=== PATIENT | female | born 1945 | race Caucasian/White ===

== ENCOUNTER 2017-08-10 09:57 | Emergency (ER) | payer MEDICARE ==
[~2017-08-10] VITALS: Ht 163.8 cm; Wt 70.0 kg
[~2017-08-10 09:57] MED LIST: ACIDOPHILUS PEARLS PO; ALENDRONATE70 MG PO; ALL DAY10 MG PO; ASPIRIN 8181 MG PO; ATIVAN0.5 MG PO; ATIVAN1 MG PO; BACTRIM DS1 TAB PO; C 250 PO; CALCIUM500 MG/D PO; CENTRUM SILVER ULTRA PO; CLOBETASOL0.051 EX; CRANBERRY PO; DIPHEN/ATROP2.5 M1 PO; DIPHEN/ATROP2.5 MG PO; FISH OIL1200 M1 PO; GLUCOSAMINE1000 M1 PO; HYDROCHLOROT25 MG PO; LISINOPRIL5 MG PO; MEDDOSEPAK PO; NAPROSYN500 MG PO; PAXIL40 MG PO; PRILOSEC20 MG/CAP PO; SIMVASTATIN40 MG PO; TESSALON PER100 MG PO; ZOFRAN ODT4 MG PO; ZYRTEC10 M5 PO
[2017-08-10] MEDS ORDERED: AMLODIPINE BESYL5 MG PO (10:38)
[2017-08-10] MEDS ORDERED: HYDROCHLOROT25 MG PO (10:38)
[2017-08-10] MEDS ORDERED: ALENDRONATE SOD70 MG PO (10:39)
[2017-08-10] MEDS ORDERED: SIMVASTATIN40 MG PO (10:39)
[2017-08-10] MEDS ORDERED: FUROSEMIDE20 MG PO (10:39)
[2017-08-10] MEDS ORDERED: DULOXETINE HCL60 MG PO (10:40)
[2017-08-10] MEDS ORDERED: MICRO-K10 MEQ PO (10:40)
[2017-08-10 12:00] VITALS: BP 121/69
[2017-08-10] MEDS ORDERED: TORADOL PO (12:00)
[2017-08-10] MEDS ORDERED: FLEXERIL PO (12:00)
[2017-08-11] MEDS ORDERED: LORTAB 1010 MG PO (06:29)
[2017-08-11] MEDS ORDERED: MEDDOSEPAK PO (06:29)
== END 2017-08-10 12:00 | disposition home or self-care (01) ==
LOC: ED 09:57
DX: S16.1XXA Strain of muscle, fascia and tendon at neck level, initial encounter (principal); I10 Essential (primary) hypertension; X58.XXXA Exposure to other specified factors, initial encounter

== ENCOUNTER 2017-08-11 05:16 | Emergency (ER) | payer MEDICARE ==
[~2017-08-11] VITALS: Ht 163.8 cm; Wt 50.0 kg
[~2017-08-11 05:16] MED LIST changes: +ALENDRONATE SOD70 MG PO; +AMLODIPINE BESYL5 MG PO; +DULOXETINE HCL60 MG PO; +FLEXERIL PO; +FUROSEMIDE20 MG PO; +MICRO-K10 MEQ PO; +TORADOL PO
[2017-08-11] MEDS ORDERED: MEDDOSEPAK PO (06:29)
[2017-08-11] MEDS ORDERED: LORTAB 1010 MG PO (06:29)
[2017-08-11 06:30] VITALS: BP 131/67
== END 2017-08-11 06:40 | disposition home or self-care (01) ==
LOC: ED 05:16
DX: S16.1XXA Strain of muscle, fascia and tendon at neck level, initial encounter (principal); M54.2 Cervicalgia

== ENCOUNTER 2020-06-10 14:54 | Emergency (ER) | payer MEDICARE ==
[~2020-06-10] VITALS: Ht 165.1 cm; Wt 72.7 kg
[~2020-06-10 14:54] MED LIST changes: +LORTAB 1010 MG PO
[2020-06-10] MEDS ORDERED: ATENOLOL25 MG PO (15:24)
[2020-06-10] MEDS ORDERED: SIMVASTATIN40 MG PO (15:25)
[2020-06-10] MEDS ORDERED: CYMBALTA60 MG PO (15:25)
[2020-06-10] MEDS ORDERED: TRAMADOL HYDROC50 MG PO (17:44)
[2020-06-10 17:51] VITALS: BP 137/84
== END 2020-06-10 17:51 | disposition home or self-care (01) ==
LOC: ED 14:54
DX: S80.01XA Contusion of right knee, initial encounter (principal); S00.83XA Contusion of other part of head, initial encounter; W01.198A Fall on same level from slipping, tripping and stumbling with subsequent striking against other object, initial encounter; I10 Essential (primary) hypertension; Y92.009 Unspecified place in unspecified non-institutional (private) residence as the place of occurrence of the external cause
CPT/HCPCS: L1830

== ENCOUNTER 2023-01-15 09:41 | Inpatient (IN) | payer MEDICARE ==
[2023-01-15] VITALS (24 sets, daily range): BP systolic 81–147; BP diastolic 46–76
[~2023-01-15] VITALS: Ht 165.1 cm; Wt 79.4 kg
[~2023-01-15 09:41] MED LIST changes: +ATENOLOL25 MG PO; +CYMBALTA60 MG PO; +TRAMADOL HYDROC50 MG PO
--- NOTE | 2023-01-15 09:50 | NUR ---
PATIENT TO ROOM 1
[2023-01-15 10:21] LABS: BASO% 0.9 % (0-3); HEMATOCRIT 36.5 % (37.0-47.0); HEMOGLOBIN 12.4 g/dl (12.0-16.0); IMMATURE GRANULOCYTES 0.3 % (0.0-5.0); LYMPH% 14.6 % (15-41); MEAN CELL VOLUME 86.9 fL CALC (80.0-100.0); MEAN CORPUSCULAR HGB 29.5 pG CALC (26.0-32.0); MONO% 7.2 % (2-13); NEUT# 4.89 thou/uL (2.00-7.15); RED BLOOD COUNT 4.2 mill/uL (4.20-5.60); RED CELL DISTRI WIDTH 12.3 % (11.5-15.5)
--- NOTE | 2023-01-15 12:04 | NUR ---
Reassessment of patient completed. No distress noted.
--- NOTE | 2023-01-15 12:40 | NUR ---
REPORT TO Jessica SMALL RN
--- NOTE | 2023-01-15 13:00 | NUR ---
female pt received to ICU bed 4 from ER via stretcher accompanied by ELAN Irvin in stable condition; ambulatory to the bed; admission assessment completed at this time; pt a&o X3; admits to left sided headache rating 4/10; pt denies nausea, vomiting, dizziness or blurred vision at present; pt does admit to vision changes and freq falling within the last week; resp even and unlabored; lungs clear; skin color wnl; ra; hr reg; strong pulses; no edema noted; sr on monitor; abd soft with bs present; no bm noted; no urine to inspect at this time; #24 patent to lfa with ivf/solumedrol infusing without complication; no redness or edema noted at site; plan of care explained; call light within reach; will continue to monitor
--- NOTE | 2023-01-15 14:00 | NUR ---
pt awake in bed; spouse at bedside; no apparent distress noted; iv intact; sr on monitor; call light within reach; will continue to monitor
--- NOTE | 2023-01-15 16:16 | NUR ---
pt resting in bed with eyes closed; no apparent distress noted; iv intact; sr on monitor; call light within reach; will continue to monitor
--- NOTE | 2023-01-15 17:45 | NUR ---
home meds reviewed with pt; pt denies remembering the last time home meds were taken; states "I can't remember"; list placed on chart
[2023-01-15] MEDS ORDERED: ASPIRIN 81 LOW81 MG PO (17:59)
[2023-01-15] MEDS ORDERED: CETIRIZINE10 MG PO (18:00)
[2023-01-15] MEDS ORDERED: KLOR-CON M1010 MEQ PO (18:02)
[2023-01-15] MEDS ORDERED: GABAPENTIN100 MG PO (18:03)
[2023-01-15] MEDS ORDERED: COZAAR50 MG PO (18:04)
[2023-01-15] MEDS ORDERED: TOPAMAX100 MG PO (18:04)
--- NOTE | 2023-01-15 18:19 | NUR ---
awake in bed eating dinner; sr on monitor; call light within reach
--- NOTE | 2023-01-15 19:00 | NUR ---
REPORT RECIEVED FROM OFF GOING NURSE.
--- NOTE | 2023-01-15 20:00 | NUR ---
PATIENT NOTED SITTING UP IN BED WITH NO ACUTE DISTRESS NOTED. VSS. SHE DENIES ANY PAIN OR DISCOMFORT AT THIS TIME. ASSESMENT COPLETED (SEE INTERVENTIONS). MD NOTIFIED REGARDING THE PATIENT HAVING NO ORDERS. WILL CONTINUE TO MONITOR.
--- NOTE | 2023-01-15 23:15 | NUR ---
MS NURSE RECIEVED REPORT. PATIENT TRANSFERRED TO MED SURGE UNIT.
--- NOTE | 2023-01-15 23:15 | NUR ---
PATIENT TRANSFERRED TO [facility] ROOM. ALERT AND ORIENTED. ABLE TO MAKE NEEDS KNOWN. ASSESSMENT COMPLETE. NO DISTRESS. NO COMPLAINTS OF PAIN. BED IN LOW POSITION. CALL MESSER IN REACH.
--- NOTE | 2023-01-16 03:26 | NUR ---
PATIENT VOIDED 300CC CLEAR YELLOW URINE ON BSC. COLLECTED SPECIMEN PER ORDERS.
[2023-01-16 03:28] VITALS: BP 122/41
[2023-01-16 04:44] VITALS: BP 122/41
[2023-01-16 05:00] LABS: BASO% 0.2 % (0-3); HEMATOCRIT 33.5 % (37.0-47.0); HEMOGLOBIN 11.6 g/dl (12.0-16.0); IMMATURE GRANULOCYTES 0.5 % (0.0-5.0); LYMPH% 9.6 % (15-41); MEAN CELL VOLUME 85.5 fL CALC (80.0-100.0); MEAN CORPUSCULAR HGB 29.6 pG CALC (26.0-32.0); MEAN CORPUSCULAR HGB CONC 34.6 g/dL CAL (32.0-36.0); MONO% 1.5 % (2-13); NEUT# 5.88 thou/uL (2.00-7.15); NEUT% 88.2 % (42-76); RED BLOOD COUNT 3.92 mill/uL (4.20-5.60); RED CELL DISTRI WIDTH 12.1 % (11.5-15.5)
[2023-01-16 05:06] LABS: URINE COLOR YELLOW
[2023-01-16 05:07] LABS: URINE BILIRUBIN - DIPSTICK NEGATIVE (NEGATIVE); URINE BLOOD DIPSTICK NEGATIVE (NEGATIVE); URINE CLARITY CLEAR; URINE GLUCOSE - DIPSTICK NEGATIVE (NEGATIVE); URINE KETONE TRACE mg/dL (NEGATIVE); URINE LEUK ESTERASE NEGATIVE (Negative); URINE NITRITE - DIPSTICK NEGATIVE (Negative); URINE PROTEIN - DIPSTICK Trace mg/dL (NEG-TRACE)
[2023-01-16 05:16] LABS: ALBUMIN 3.9 g/dL (3.2-5.0); ALKALINE PHOSPHATASE 74 u/l (38-126); ANION GAP 12 (6-22 (CALC)); BILIRUBIN, TOTAL 0.6 mg/dL (0.02-1.3); BUN 18 mg/dL (8-23); BUN/CREATININE RATIO 25 (12-20 (CALC)); CHLORIDE 105 mmol/l (95-108); CREATININE 0.7 mg/dL (0.5-1.0); GFR FOR AFR.AMER. > 60 ML/MIN (>=60 (CALC)); GFR OTHER RACES > 60 ML/MIN (>=60 (CALC)); SGOT/AST 25 u/l (9-36); SODIUM 136 mmol/l (137-146); TOTAL PROTEIN 6.3 g/dL (6.3-8.2)
[2023-01-16 05:22] LABS: CARBON DIOXIDE 22 mmol/l (22-30)
[2023-01-16 07:15] VITALS: BP 122/55
[2023-01-16 08:35] VITALS: BP 94/38
[2023-01-16] MEDS ORDERED: HYDROCO/APAP1 TA9 PO (11:43)
--- NOTE | 2023-01-16 13:00 | NUR ---
Discharge instructions given. Patient verbalizes understanding of same. Discharged in stable condition via Ambulatory to Home with family. All belongings sent with pt.
== END 2023-01-16 13:00 | disposition home or self-care (01) | DRG 74 ==
LOC: ED 09:41 → ED-I 11:10 → ED 11:18 → ICU 11:18 → MS2 23:15
PROVIDERS: Family Medicine; ADMIT Internal Medicine; ATTEND Internal Medicine
DX: G50.0 Trigeminal neuralgia (principal); E87.6 Hypokalemia; I10 Essential (primary) hypertension; F32.A Depression, unspecified

== ENCOUNTER 2023-01-23 12:44 | Emergency (ER) | payer MEDICARE ==
[~2023-01-23] VITALS: Ht 165.1 cm; Wt 68.0 kg
[~2023-01-23 12:44] MED LIST changes: +ASPIRIN 81 LOW81 MG PO; +CETIRIZINE10 MG PO; +COZAAR50 MG PO; +GABAPENTIN100 MG PO; +HYDROCO/APAP1 TA9 PO; +KLOR-CON M1010 MEQ PO; +TOPAMAX100 MG PO
[2023-01-23 13:43] LABS: BASO% 0.4 % (0-3); EOS% 0.7 % (0-8); HEMATOCRIT 37.5 % (37.0-47.0); HEMOGLOBIN 12.8 g/dl (12.0-16.0); IMMATURE GRANULOCYTES 0.6 % (0.0-5.0); LYMPH% 8.5 % (15-41); MEAN CELL VOLUME 85.6 fL CALC (80.0-100.0); MEAN CORPUSCULAR HGB 29.2 pG CALC (26.0-32.0); MEAN CORPUSCULAR HGB CONC 34.1 g/dL CAL (32.0-36.0); MONO% 6.7 % (2-13); NEUT# 6.86 thou/uL (2.00-7.15); NEUT% 83.1 % (42-76); RED BLOOD COUNT 4.38 mill/uL (4.20-5.60); RED CELL DISTRI WIDTH 12.4 % (11.5-15.5)
[2023-01-23 13:45] LABS: URINE COLOR YELLOW; URINE GLUCOSE - DIPSTICK NEGATIVE (NEGATIVE)
[2023-01-23 13:46] LABS: URINE BLOOD DIPSTICK MODERATE (NEGATIVE); URINE KETONE >=80 mg/dL (NEGATIVE); URINE NITRITE - DIPSTICK NEGATIVE (Negative); URINE PROTEIN - DIPSTICK >=300 mg/dL (NEG-TRACE)
[2023-01-23 13:47] LABS: URINE BACTERIA FEW hpf; URINE EPITHELIAL CELLS MODERATE EPI/hpf (0-FEW); URINE LEUK ESTERASE SMALL (NEGATIVE); URINE MUCUS MANY hpf (NONE-FEW)
[2023-01-23 14:05] LABS: ALBUMIN 4.4 g/dL (3.2-5.0); ALKALINE PHOSPHATASE 99 u/l (38-126); BILIRUBIN, TOTAL 0.7 mg/dL (0.02-1.3); BUN 10 mg/dL (8-23); BUN/CREATININE RATIO 18 (12-20 (CALC)); CHLORIDE 96 mmol/l (95-108); CREATININE 0.6 mg/dL (0.5-1.0); GFR FOR AFR.AMER. > 60 ML/MIN (>=60 (CALC)); GFR OTHER RACES > 60 ML/MIN (>=60 (CALC)); LIPASE 34 u/l (23-300); POTASSIUM 3.3 mmol/l (3.5-5.1); SGOT/AST 40 u/l (9-36); SODIUM 134 mmol/l (137-146); TOTAL PROTEIN 7.4 g/dL (6.3-8.2)
[2023-01-23 14:13] LABS: ANION GAP 12 (6-22 (CALC)); CARBON DIOXIDE 29 mmol/l (22-30)
[2023-01-23] MEDS ORDERED: OMNICEF300 M1 PO (15:38)
[2023-01-23] MEDS ORDERED: ZOFRAN4 MG/TAB PO (15:38)
[2023-01-23 17:11] VITALS: BP 153/68
== END 2023-01-23 17:13 | disposition home or self-care (01) ==
LOC: ED 12:44
PROVIDERS: Family Medicine
DX: N39.0 Urinary tract infection, site not specified (principal); G50.0 Trigeminal neuralgia; I10 Essential (primary) hypertension; F32.A Depression, unspecified